=== PATIENT | male | born 1940 | race Caucasian/White ===

== ENCOUNTER 2016-06-17 07:40 | Inpatient (IN) | payer MEDICARE, BC ==
[2016-06-12 16:41] LABS: HEMATOCRIT 43.6 % (40.0-51.0); HEMOGLOBIN 14.7 g/dL (13.6-17.8)
[2016-06-12 16:55] LABS: BUN (BLOOD UREA NITROGEN) 25 MG/DL (6-23); CALCIUM, SERUM 8.9 MG/DL (8.5-10.4); CHLORIDE, SERUM 107 MMOL/L (96-112); CO2 (CARBON DIOXIDE) 26 MMOL/L (24-34); CREATININE 1.22 MG/DL (0.70-1.30); GFR AFRICAN AMERICAN 66 ML/MIN (>=60); GFR NON AFRICAN AMERICAN 57 ML/MIN (>=60); GLUCOSE, SERUM 116 MG/DL (60-99); POTASSIUM, SERUM 4.5 MMOL/L (3.5-5.3); SODIUM, SERUM 142 MMOL/L (135-148)
--- NOTE | ~2016-06-17 | CN ---
Consultation Report [facility] [address] [place]. [address] NAME: AMALIA LIVINGSTON : 40 STATUS : ADM IN [facility]#: [id number] AGE: 76 ADM/REG DATE : 06/17/16 MR#: [id number] REPORT SERV DATE: 06/22/16 DICTATED BY: JOSELUIS DELVALLE DATE: 06/22/16 REPORT STATUS : Draft TRANSCRIBED BY: MODL DATE: 06/22/16 CONSULTATION NOTE. DATE OF CONSULTATION: 06/22/2016 SERVICE: Otolaryngology. 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 During his postoperative period, the patient has had significant difficulty swallowing secondary to pain. Given the extent of the surgery and the length of time, postoperative day #5 now before return to swallowing. My service was consulted for evaluation of the larynx and throat to rule out underlying injury, and discussed with Diana who is the daughter at the bedside. The patient had fully functioning swallowing ability prior to surgery. I talked to the patient himself, he said that he does feel like his swallowing is gradually getting better with each day. I did not recognize any specific voice issues when talking to him. PAST MEDICAL HISTORY: Osteoarthritis, prostate cancer, and osteoporosis. PAST SURGICAL HISTORY: As above. ALLERGIES: FLOMAX AND ROBAXIN. FAMILY HISTORY: Noncontributory. SOCIAL HISTORY: Noncontributory. PHYSICAL EXAMINATION: GENERAL: He is awake, alert, in no acute distress. HEENT: Head is normocephalic and atraumatic. No external ear or nose deformities are present. He had a clean dry bandage over the left side of his neck. Oral cavity and oropharynx were somewhat dry, but there was equal elevation of the palate. PROCEDURE NOTE: After informed consent was obtained, a flexible fiberoptic scope coated in Surgilube was passed through the left naris. The patient had a normal nasopharyngeal mucosa in eustachian tube ostium more posteriorly. The lingual tonsils were symmetric. There was a moderate amount of edema on the left side, but was not in any way obstructing the larynx or swallowing tube. There was very minimal with any pooling of saliva present. The patient adducted and abducted his cords well and there did not appear to be any dysfunction of his vocal cords. He tolerated this procedure well without complications. ASSESSMENT: Dysphagia, this seems most likely be postoperative dysphagia, due to pain and Consultation Report [facility] [id number] [place]. [address] NAME: AMALIA LIVINGSTON : 40 STATUS : ADM IN PAT#: [id number] AGE: 76 ADM/REG DATE : 06/17/16 MR#: [id number] REPORT SERV DATE: 06/22/16 DICTATED BY: JOSELUIS DELVALLE DATE: 06/22/16 REPORT STATUS : Draft TRANSCRIBED BY: MODL DATE: 06/22/16 swelling from surgery. The patient clinically seems to be improving slowly. I anticipate full return of function once the swelling and pain are reduced with the passage of time. I do not see any area which an intervention would be of help at this time. I agree with the tube feeds until patient's swallowing improves. Thank you for this consult. If there are any questions, please do not hesitate to call at any time. My office number is #[phone]. PS/MODL Joseluis Delvalle MD / [id number] CC: Kieran Crump, DO Caleb Weiner M.D.
--- NOTE | ~2016-06-17 | CN ---
Consultation Report [facility] [address] [place]. [address] NAME: AMALIA DELATORRE : 40 STATUS : ADM IN [facility]#: [id number] AGE: 76 ADM/REG DATE : 06/17/16 MR#: [id number] REPORT SERV DATE: 06/23/16 DICTATED BY: JUSTUS SIMEON DATE: 06/21/16 REPORT STATUS : Draft TRANSCRIBED BY: MODL DATE: 06/21/16 CONSULTATION DATE OF CONSULTATION: 06/21/2016 REASON FOR CONSULTATION: Dysphagia, altered mental status, hypertension, and abnormal breathing. HISTORY OF PRESENT ILLNESS: Mr. Delatorre is a 76-year-old male with osteoarthritis and remote prostate cancer, otherwise healthy admitted on 06/17/2018 for intractable neck pain with myelopathic symptoms including ataxia and lower extremity weakness. He underwent an ACDF from C3 to C7 with plating and instrumentation followed by C3 through C7 posterior laminectomy with fusion. The operation took 7 hours, vital signs stable throughout. Estimated blood loss of 300 mL during the operative procedure. Postoperative course, however, was complicated by dysphagia, hypertension, diminished level of consciousness and adventitious breath sounds. We were consulted to evaluate and manage those symptoms. The patient has been somnolent, difficult to arouse. Throughout the day, he had a great deal of pain, required 2 mg of Dilaudid every 3 hours. He awakened briefly and falls back asleep. The patient does awaken for me, acknowledges severe pain, shortness of breath. The pain is in his neck and radiates down his right arm. He has significant cough, unable to expectorate the sensation if there is phlegm present. He has had difficulty swallowing and even his saliva if it is too thick. The patient has had significant weakness, not been out of bed yet. He has had no bowel movements either. He has had nausea but without vomiting. The patient denies any bleeding, denies any cardiovascular, pulmonary health history. No palpitations. No chest pain per se although he does have some inspiratory discomfort. REVIEW OF SYSTEMS: Remainder of review of systems are negative. PAST MEDICAL HISTORY: As mentioned above. The patient denies any prior history of hypertension. MEDICATIONS: At home include Zyrtec, Flexeril, Flonase, Xiidra, multivitamin, Zantac, Aleve, Omegared, Lipoflavonoid. ALLERGIES: NO ALLERGIES. FAMILY HISTORY: Negative for cardiovascular pulmonary disease. SOCIAL HISTORY: The patient has no tobacco, alcohol, or drug history. PHYSICAL EXAMINATION: VITAL SIGNS: On presentation, blood pressure 173/79, pulse 110, respirations 14, afebrile, saturating 91% on room air. GENERAL: On exam, he is asleep but awakens easily. Alert and oriented x3. No apparent Consultation Report [address] [place]. [address] NAME: AMALIA DELATORRE : 40 STATUS : ADM IN PAT#: [id number] AGE: 76 ADM/REG DATE : 06/17/16 MR#: [id number] REPORT SERV DATE: 06/23/16 DICTATED BY: JUSTUS SIMEON DATE: 06/21/16 REPORT STATUS : Draft TRANSCRIBED BY: RASHAUN DATE: 06/21/16 distress. HEENT: Pupils are equal, round, and reactive to light. Extraocular movements are intact. He had fair dry mucous membranes. Normal oropharynx. NECK: Revealed flat jugular veins. He has significant swelling particularly in the left neck with tenderness and diminished range of motion. A [place] drain showed thin serous drainage. CARDIAC EXAM: Tachycardic. Regular rhythm. No murmurs, gallops, or rubs identified. LUNGS: Actually showed excellent excursion with incentive spirometry pulling 2400 mL. ABDOMEN: Soft and nontender. Bowel sounds hypoactive. EXTREMITIES: No cyanosis, clubbing, or edema. He had good pulses but diminished capillary refill. NEUROLOGICAL: He had 5/5 strength bilateral lower extremities. He had pain with use of the upper extremities particularly the right upper extremity. Fire Chief'S Aide was satisfactory, difficult to assess proximal strength due to pain. Deep tendon reflexes were absent in the right upper extremity, they were 2+ and in the left 3+ at the patellar reflexes but toes were downgoing bilaterally. Sensory function was diminished at the right upper extremity, normal throughout the rest. PSYCH: He was appropriate. LABORATORY EVALUATION: Sodium 133, potassium 4.0, chloride 96, bicarb 27, BUN 17, creatinine 0.7, glucose 160, white count 66344, H and 13/37, platelets 265. Chest x-ray shows no apparent disease, left lower lobe atelectasis noted. Telemetry shows sinus tachycardia. ASSESSMENT AND PLAN: 1. Status post C-spine stenosis, 5 level operation done per Dr. Crump. Postoperative complications include dysphagia due to the ACDF. ENT has been consulted. However, it is clear that patient is not swallowing very well, and p.o. was unsafe. He actually had a swallow evaluation by the speech therapist yesterday. Dobbhoff will be placed for medications and for food if this persists. We may go ahead and begin some Jevity at this time. 2. Malignant hypertension. This is exacerbated by pain, hydralazine p.r.n. and to try to get better pain control. A long-acting pain medicine would be recommended in this setting as he is taking very high doses of hydromorphone. We will initiate Duragesic patch and try to reduce the Dilaudid does but increase the frequency to try to have better pain control without further alterations in level of consciousness. 3. Altered mental status likely due to pain medications with good pulmonary expansion. No pulmonary history. Hypercapnia is unlikely. We will go ahead and check that to see if he could benefit from BiPAP therapy. The abnormal chest x-ray noting atelectasis on lung exam probably reflected that earlier today. As he is more awake right now, he has good pulmonary excursion and lung disease is not an issue at this time. However, it should be noted that patient is at high risk for aspiration pneumonitis. We should be cautious with development of fevers or worsening leukocytosis or elevation in procalcitonin. The leukocytosis that he has at present is likely due to Decadron which Consultation Report [address] [place]. [address] NAME: AMALIA DELATORRE : 40 STATUS : ADM IN PAT#: [id number] AGE: 76 ADM/REG DATE : 06/17/16 MR#: [id number] REPORT SERV DATE: 06/23/16 DICTATED BY: JUSTUS SIMEON DATE: 06/21/16 REPORT STATUS : Draft TRANSCRIBED BY: MODCiera DATE: 06/21/16 he has been receiving here in the hospital. We appreciate the opportunity to assist in care of this patient. I will be following with you. SHREYAS/RASHAUN Justus Simeon M.D. / [id number] CC: DO Caleb Leon M.D.
--- NOTE | ~2016-06-17 | OP ---
Record Of Operation [facility] [address] [place]. 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 PROCEDURE: Two-stage procedure: First stage: Anterior cervical diskectomy and fusion, C3-4, C4-5, C5-6, C6-7; placement of Medtronic PEEK interbody spacer, C3-4, C4-5, C5-6, C6-7; anterior cervical plate from Medtronic, C3 through C7; allograft bone matrix; neuromonitoring; and operative microscope. Second stage: C3 through C7 posterior laminectomy and bilateral foraminotomies; C2 through C7 posterolateral fusion bilaterally; C3 through C7 posterior segmental spinal instrumentation using Medtronic lateral mass and pedicle screws; local morcellized autograft, allograft; bone matrix; neuromonitoring; intraoperative O-arm CT scan with computer navigation. SURGEON: Kieran Overton DO. ANESTHESIA: General. ESTIMATED BLOOD LOSS: Total 300 mL. COMPLICATIONS: None. INDICATIONS: The patient is a 76-year-old with intractable neck pain and progressive signs of cervical spondylotic myelopathy. After discussion of risks and benefits, and progressive neurologic decline, the patient elected to proceed with surgery. PROCEDURE IN DETAIL: I identified the patient in the holding area. Consent was obtained. Went to the operating room. Underwent general anesthesia with endotracheal intubation. Prepped and draped in the usual sterile fashion. Operative safety pause was performed, and then we proceeded with surgery. An oblique incision was made over the left side of the neck, taken down through the platysma to the anterior aspect of the spine. Longus colli elevated bilaterally C3 to C7. Madison pin was placed and lateral fluoroscopic image used to verify operative level. Distraction was applied across the C3-C4 level. Operative microscope was brought in. A knife was used to incise the disk. Free disk material removed with pituitary. Anterior osteophytes were removed with Kerrison. Posterior osteophytes and uncinate processes taken down with a misael bur. Foraminotomies performed with a Kerrison. Endplates prepared with curettes, rasp, and a cutting bur. Trial spacers implanted. The Medtronic PEEK interbody spacer with allograft bone matrix placed at C3-C4, this was repeated again at C4-5, C5-6, and C6-C7. Irrigation performed. Hemostasis achieved. Record Of Operation [facility] [address] [place]. [address] NAME: AMALIA LIVINGSTON : 40 STATUS : ADM IN PAT#: [id number] AGE: 76 ADM/REG DATE : 06/17/16 MR#: [id number] REPORT SERV DATE: 06/18/16 DICTATED BY: KIERAN OVERTON DATE: 06/17/16 REPORT STATUS : Draft TRANSCRIBED BY: RASHAUN DATE: 06/17/16 Madison pins were removed. Anterior cervical plate from Medtronic placed C3 through C7. Screws were placed, final tightened. Locking mechanisms were engaged. Final AP and lateral images were obtained. Subplatysmal drain was placed. Layered closure performed. Sterile dressings applied. The patient was then turned to the prone position for second stage of the procedure. Second stage: The patient was prepped and draped in usual sterile fashion. Operative safety pause was performed. A midline longitudinal incision was made at C2 down to C7 taken down to the fascial layer. Paraspinous muscle subperiosteally elevated. Self-retaining retractors were placed. O-arm registration frame placed on the spinous process. O-arm was brought in for an intraoperative O-arm CT scan. Computer registration materials were verified and then lateral mass and pedicle screws from Medtronic were placed from C3 down to C7. There was already an auto fusion at the C2-C3 level. There was not good sufficient bone stock at C2 due to aberrant course of the vertebral artery, so screws were not placed at that level. O-arm was brought back in to verify good placement of instrumentation. A high-speed bur was used to create a trough in the lamina C3 through C7. Final cut were made with a misael bur. Kerrison removed underlying ligamentum flavum. The lamina was removed en bloc and used for local morcellized autograft. Kerrison was used to perform foraminotomies at C3 through C7. Spinal cord and nerves were free of compression. Rods were cut and contoured to appropriate shape and length, placed over the screws C3 through C7. Set screws placed and final tightened. A high-speed decorticating catalina was used to decorticate the remaining bony surfaces C2 down to C7. Irrigation performed. Hemostasis achieved. Local morcellized autograft and allograft bone matrix packed over the decorticated surfaces at C2 to C7 bilaterally. Subfascial drain placed. A gram of vancomycin powder sprinkled over the surgical wound. Layered closure performed. Sterile dressings applied. The patient awoke and extubated, taken to recovery room in stable condition. OPERATIVE FINDINGS: Severe stenosis with spinal cord and nerve root compression. No sustained neuromonitoring alerts. RAZ/RASHAUN Kieran Overton DO / [id number] CC: Kieran Overton DO
--- NOTE | ~2016-06-17 | PREOPHP ---
PreOp History and Physical [facility] [id number] [place]. [address] NAME: AMALIA LIVINGSTON : 40 STATUS : ADM IN [facility]#: [id number] AGE: 76 ADM/REG DATE : 06/17/16 MR#: [id number] REPORT SERV DATE: 06/17/16 DICTATED BY: KIERAN CRUMP DATE: 06/17/16 REPORT STATUS : Draft TRANSCRIBED BY: RASHAUN DATE: 06/17/16 CHIEF COMPLAINT: Neck pain. HISTORY OF PRESENT ILLNESS: The patient is a 76-year-old gentleman with intractable neck pain. He also has progressive signs of myelopathy with worsening balance and dropping objects and after discussion of risks and benefits, he elected to proceed with surgical intervention. REVIEW OF SYSTEMS: He denies chest pain, shortness of breath, and bowel or bladder changes. ALLERGIES: DENIED. HOME MEDICATIONS: Include Advil, Aleve, Flexeril, fish oil, methocarbamol, multivitamin, tramadol. FAMILY HISTORY: Noncontributory. PAST MEDICAL HISTORY: Osteoarthritis, prostate cancer, osteoporosis. PHYSICAL EXAMINATION: VITAL SIGNS: Height 5 feet 10 inches, weight 158, BMI 22.7. GENERAL: The patient is healthy appearing, in no acute distress. PSYCH: Alert and oriented x3. Normal mood and affect. Gait somewhat unsteady. VASCULAR: No extremity swelling. SPINE: Decreased cervical motion. NEUROLOGIC: Positive Rui sign on the left. Motor strength is 4/5 for the left triceps. All other motor strength in the bilateral upper extremities is 5/5. HEART: Regular rate and rhythm. LUNGS: Clear to auscultation. ABDOMEN: Soft, nontender, nondistended with good bowel sounds. BREASTS: Deferred. RECTAL: Deferred. IMAGING: I have reviewed the MRI scan of the cervical spine. The patient does have disk disease and stenosis, C2 down through C7, with spinal cord and nerve root compression. ASSESSMENT: Cervical disk disease and stenosis, progressive signs of cervical spondylotic myelopathy, failed conservative treatment, progressive neurologic decline. PLAN: The patient presents for surgical intervention. Consent was obtained. All questions are answered. He is ready to proceed with surgery. RAZ/RASHAUN PreOp History and Physical [address] [place]. [place] [address] NAME: AMALIA LIVINGSTON : 40 STATUS : ADM IN [facility]#: [id number] AGE: 76 ADM/REG DATE : 06/17/16 MR#: [id number] REPORT SERV DATE: 06/17/16 DICTATED BY: KIERAN CRUMP DATE: 06/17/16 REPORT STATUS : Draft TRANSCRIBED BY: MODL DATE: 06/17/16 Kieran Crump DO / [id number] CC: DO Caleb Leon M.D.
--- NOTE | ~2016-06-17 | DS ---
Discharge Summary [id number] [place]. [address] NAME: AMALIA LIVINGSTON : 40 STATUS : DIS IN PAT#: [id number] AGE: 76 ADM/REG DATE : 06/17/16 MR#: [id number] REPORT SERV DATE: 07/08/16 DICTATED BY: KIERAN CRUMP DATE: 07/07/16 REPORT STATUS : Draft TRANSCRIBED BY: RASHAUN DATE: 07/07/16 Data Collection from hospitalization DISCHARGE DIAGNOSES: 1. 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 2. Osteoarthritis. 3. Osteoporosis. 4. History of prostate cancer. CONSULTATIONS: 1. Alen Ojeda M.D. 2. Kenneth Louis MD. PROCEDURES PERFORMED: Stage 2 procedure. First stage: Anterior cervical diskectomy and fusion C3-4, C4-5, C5-6, C6-7; placement of Medtronic PEEK interbody spacer C3-4, C4-5, C5-6, C6-7; anterior cervical plate from Medtronic C3 through C7; allograft bone matrix, neuromonitoring, and operative microscope. Second stage: C3 through C7 posterior laminectomy and bilateral foraminotomies, C2 through C7 posterolateral fusion bilaterally, C3 through C7 posterior segmental spinal instrumentation using Medtronic lateral mass and pedicle screws; local morcellized autograft, allograft bone matrix, neuromonitoring, intraoperative O-arm CT scan with computer navigation on 06/17/2016. Modified barium swallow study on 06/24/2016. PATHOLOGY: Bone and soft tissue, cervical spine - nonspecific degenerative changes. MEDICATIONS: Lotensin 20 mg daily, Duragesic 50 mcg topically every 72 hours, MiraLAX one packet daily, Proventil 3 mL via inhaler every four hours while awake, Tylenol 650 mg every four hours as needed orally or rectally, Mylanta 30 mL as needed, Dulcolax 10 mg per rectum as needed, Dulcolax 15 mg as needed, Benadryl 25 mg every six hours as needed, Zantac 150 mg as needed, Flonase nasal spray one spray nasally twice a day as needed, Zyrtec 10 mg daily as needed, milk of magnesia 30 mL twice a day as needed, Percocet 5/325 one to two tablets every four hours as needed, Phenergan 25 mg per rectum every four hours as needed, Mouth Kote dry mouth spray one spray as needed, multivitamins one tablet daily, Xiidra one drop every 12 hours, Colace 100 mg twice a day as needed - hold for loose stools, and Phenergan 12.5 mg every four to six hours as needed. CONDITION AT DISCHARGE: Stable. DISPOSITION: The patient was discharged to [facility] on a mechanical soft, chopped meat with gravy diet with activities as instructed. HOSPITAL COURSE: This is a 76-year-old man who has intractable neck pain. He also has progressive signs of myelopathy with worsening balance and dropping objects, and after Discharge Summary [address] [place]. [address] NAME: AMALIA LIVINGSTON : 40 STATUS : DIS IN [facility]#: [id number] AGE: 76 ADM/REG DATE : 06/17/16 MR#: [id number] REPORT SERV DATE: 07/08/16 DICTATED BY: KIERAN CRUMP DATE: 07/07/16 REPORT STATUS : Draft TRANSCRIBED BY: RASHAUN DATE: 07/07/16 discussion of risks and benefits, he elected to proceed with surgical intervention. He was admitted to the hospital at this time for further evaluation and treatment. Upon admission, he was taken to the operating room where he underwent the above-mentioned procedure. He tolerated this well, and there were no complications. Upon admission, he was taken to the operating room where he underwent the above-mentioned procedure. He tolerated this well, and there were no complications. On 06/19/2016, he was doing well. He did complain of some various muscle spasms that were transient all over. We encouraged him to mobilize with Physical Therapy. He was given 1 g of calcium gluconate. On 06/20/2016, Speech/Language Pathology evaluated the patient. A bedside swallow study was performed. Aspiration precautions were in place. He was evaluated by Physical Therapy. He was up sitting in a chair. He did complain of some intermittent spasms. On 06/21/2016, we encouraged him to mobilize with Physical Therapy. Aerosol treatments were performed. Apresoline was being given as needed. Dobhoff tube was going to be used for medications. The patient was seen by Dr. Alen Ojeda regarding dysphagia, altered mental status, hypertension, and abnormal breathing. His postoperative complications included dysphagia due to ACDS. The patient has malignant hypertension, this was exacerbated by pain. Hydralazine was being given as needed. A long-acting pain medication was recommended in this setting as he was taking very high doses of hydromorphone. We were going to initiate Duragesic patch and try to reduce Dilaudid doses, but increase the frequency to try to have better pain control without further alterations in level of consciousness. It was felt that he may benefit from BiPAP therapy. Abnormal chest x-ray revealed atelectasis. On 06/22/2016, he seemed to be more alert. He complained of some left hand and forearm numbness. We encouraged him to mobilize with Physical Therapy as tolerated. Medications were being given via the Dobhoff tube. He was seen by Dr. Kenneth Louis. The patient had fully functioning swallowing ability prior to surgery. He said he felt like his swallowing was gradually getting better with each day. There were no specific voice issues. He performed a flexible fiberoptic scope. The patient had normal nasopharyngeal mucosa in the eustachian tube ostium more posteriorly. The lingual tonsils were symmetric. There was a moderate amount of edema on the left side, but it was not in any way obstructing the larynx or swallowing tube. There was very minimal with any pooling of saliva present. The patient abducted and adducted his cords well and there did not appear to be any dysfunction of his vocal cords. He tolerated that without any complications. The dysphagia seemed to be most likely postoperative dysphagia due to pain and swelling from surgery. He appeared to be clinically improving slowly. We anticipated full return of function once the swelling and pain were reduced with the passage of time. He did not see any areas where intervention would be of help at this time. He agreed with tube feedings until swallowing improved. The next day, he seemed to be feeling better. A modified barium swallow study was requested. On 06/24/2016, modified barium swallow study was performed. He was up sitting in a bedside chair. He was in no acute distress. He did have some nausea when he was up with Physical Therapy. He denied any chest pain or shortness of breath. He did have a bowel movement. His altered mental status resolved. Aspiration precautions remained in place. He had no aspiration or penetration seen. Next day, he did complain of some neck pain. He denied any difficulty swallowing. He denied chest pain or shortness of breath. He did have a cough with some clear phlegm. On Discharge Summary [address] [place] [address] NAME: AMALIA LIVINGSTON : 40 STATUS : DIS IN PAT#: [id number] AGE: 76 ADM/REG DATE : 06/17/16 MR#: [id number] REPORT SERV DATE: 07/08/16 DICTATED BY: KIERAN CRUMP DATE: 07/07/16 REPORT STATUS : Draft TRANSCRIBED BY: MODCiera DATE: 07/07/16 06/26/2016, he did have an episode of vomiting after his morning medications. He refused Reglan. He denied chest pain, shortness of breath, or abdominal pain. He was in a sinus rhythm. Discharge instructions were given. Due to his improved and stable condition, he was discharged to [facility] with the above-stated instructions. Information collected by: Edwina Soto I submit the above information as my discharge summary. JOSE MANUEL/RASHAUN Kieran Crump DO / [id number] CC: DO Caleb Leon M.D. [facility] Kenneth Louis MD
[~2016-06-17 07:40] MED LIST: ACET500CAP PO; ALEVE PM PO; AMOXIL500 MG PO; AVODART PO; EYE OP; FISH-EPA1000 MG PO; FLEX PO; FLONASE NAS; LIPO FLAVINOID PO; MULTIVITAMI1 PO; OMEGA RED PO; OXAPROZIN600 MG PO; OXYCOD PO; REFRESH OPH SO0.3 ML OPH; REMERON30 MG PO; RESTASIS OPH; XIIDRA1 EACH OPH; ZANTAC150 MG PO; ZYRTEC ALLGY10 MG PO; [UNRECOGNIZED DRUG - OTHER] T
[2016-06-18 03:39] LABS: POTASSIUM, SERUM 4.4 MMOL/L (3.5-5.3)
[2016-06-20 07:17] LABS: BASOPHILS 0.1 %; BASOPHILS ABSOLUTE 0.01 10/3/uL (0.0-0.16); EOSINOPHILS 0.6 %; EOSINOPHILS ABSOLUTE 0.08 10/3/uL (0.0-0.53); HEMOGLOBIN 11.9 g/dL (13.6-17.8); IMMATURE GRANULOCYTES 0.2 %; IMMATURE GRANULOCYTES ABSOLUTE 0.03 10/3/uL (0.0-0.11); LYMPHOCYTES 8.3 %; LYMPHOCYTES ABSOLUTE 1.13 10/3/uL (0.67-4.30); MEAN CORPUS HGB CONC 34.3 g/dL (32.0-36.0); MEAN CORPUSCULAR HEMOGLOB 29.9 pg (26.0-34.0); MEAN CORPUSCULAR VOLUME 87.2 fL (80-100); MEAN PLATELET VOLUME 11.1 fL (9.2-13.0); MONOCYTES 7.5 %; MONOCYTES ABSOLUTE 1.03 10/3/uL (0.21-1.20); NEUTROPHILS 83.3 %; NEUTROPHILS ABSOLUTE 11.38 10/3/uL (2.02-8.40); PLATELET COUNT 221 10/3/uL (150-400); RBC DISTRIBUTION WIDTH 13.1 % (12.0-16.0); RED CELL COUNT 3.98 10/6/uL (4.7-6.1); WHITE BLOOD CELLS 13.7 10/3/uL (4.5-10.5)
[2016-06-20 07:19] LABS: BUN (BLOOD UREA NITROGEN) 14 MG/DL (6-23); CHLORIDE, SERUM 99 MMOL/L (96-112); CO2 (CARBON DIOXIDE) 24 MMOL/L (24-34); GLUCOSE, SERUM 123 MG/DL (60-99); POTASSIUM, SERUM 3.9 MMOL/L (3.5-5.3); SODIUM, SERUM 132 MMOL/L (135-148)
[2016-06-20 07:20] LABS: CALCIUM, SERUM 7.8 MG/DL (8.5-10.4); GFR AFRICAN AMERICAN 106 ML/MIN (>=60); GFR NON AFRICAN AMERICAN 92 ML/MIN (>=60)
[2016-06-20 07:24] LABS: HEMATOCRIT 34.7 % (40.0-51.0); MANUAL DIFF NO %
[2016-06-20 07:26] LABS: INTERNATIONAL NORMAL RATI 1.1 UNITS (-); PROTIME (NOT ORD) 14.4 SEC (12.0-14.5)
[2016-06-21 05:40] LABS: BASOPHILS 0 %; EOSINOPHILS 0.1 %; EOSINOPHILS ABSOLUTE 0.01 10/3/uL (0.0-0.53); HEMATOCRIT 36.5 % (40.0-51.0); HEMOGLOBIN 12.8 g/dL (13.6-17.8); IMMATURE GRANULOCYTES 0.2 %; IMMATURE GRANULOCYTES ABSOLUTE 0.03 10/3/uL (0.0-0.11); LYMPHOCYTES 5.7 %; LYMPHOCYTES ABSOLUTE 0.71 10/3/uL (0.67-4.30); MEAN CORPUS HGB CONC 35.1 g/dL (32.0-36.0); MEAN CORPUSCULAR HEMOGLOB 30.4 pg (26.0-34.0); MEAN CORPUSCULAR VOLUME 86.7 fL (80-100); MEAN PLATELET VOLUME 11.2 fL (9.2-13.0); MONOCYTES 5.9 %; MONOCYTES ABSOLUTE 0.74 10/3/uL (0.21-1.20); NEUTROPHILS 88.1 %; NEUTROPHILS ABSOLUTE 11.06 10/3/uL (2.02-8.40); PLATELET COUNT 265 10/3/uL (150-400); RED CELL COUNT 4.21 10/6/uL (4.7-6.1); WHITE BLOOD CELLS 12.6 10/3/uL (4.5-10.5)
[2016-06-21 05:41] LABS: MANUAL DIFF NO %
[2016-06-21 05:53] LABS: BUN (BLOOD UREA NITROGEN) 17 MG/DL (6-23); CALCIUM, SERUM 8.2 MG/DL (8.5-10.4); CHLORIDE, SERUM 96 MMOL/L (96-112); CO2 (CARBON DIOXIDE) 27 MMOL/L (24-34); CREATININE 0.71 MG/DL (0.70-1.30); GFR AFRICAN AMERICAN 106 ML/MIN (>=60); GFR NON AFRICAN AMERICAN 91 ML/MIN (>=60); GLUCOSE, SERUM 160 MG/DL (60-99); SODIUM, SERUM 133 MMOL/L (135-148)
[2016-06-22 04:58] LABS: ALLENS TEST Pos; BE (BASE EXCESS) 4.5 MEQ/L (0 +/- 2.5); CARBOXYHEMOGLOBIN 0.7 % (0-3); HCO3 (ACTUAL BICARBONATE) 28.2 MEQ/L (23-27); HEMOBLOGIN CONTENT 12.7 G/DL (14-18); INSTRUMENT SERIAL # 8083; METHEMOGLOBIN 0.3 % (0-3); O2 CONTENT 16.6 VOL% (18-24); OPERATOR ID 33214; PCO2 (CO2 TENSION) 39 MMHG (35-45); PO2 (O2 TENSION) 66 MMHG (79-93); SAMPLE Arterial; pH 7.48 (7.37-7.43)
[2016-06-22 05:43] LABS: BASOPHILS 0.1 %; BASOPHILS ABSOLUTE 0.01 10/3/uL (0.0-0.16); EOSINOPHILS 0.3 %; EOSINOPHILS ABSOLUTE 0.04 10/3/uL (0.0-0.53); HEMATOCRIT 35.2 % (40.0-51.0); HEMOGLOBIN 12.3 g/dL (13.6-17.8); IMMATURE GRANULOCYTES 0.3 %; IMMATURE GRANULOCYTES ABSOLUTE 0.04 10/3/uL (0.0-0.11); LYMPHOCYTES 10.3 %; LYMPHOCYTES ABSOLUTE 1.43 10/3/uL (0.67-4.30); MEAN CORPUS HGB CONC 34.9 g/dL (32.0-36.0); MEAN CORPUSCULAR HEMOGLOB 30.2 pg (26.0-34.0); MEAN CORPUSCULAR VOLUME 86.5 fL (80-100); MEAN PLATELET VOLUME 10.9 fL (9.2-13.0); MONOCYTES 10.4 %; MONOCYTES ABSOLUTE 1.45 10/3/uL (0.21-1.20); NEUTROPHILS 78.6 %; NEUTROPHILS ABSOLUTE 10.96 10/3/uL (2.02-8.40); PLATELET COUNT 319 10/3/uL (150-400); RBC DISTRIBUTION WIDTH 13.1 % (12.0-16.0); RED CELL COUNT 4.07 10/6/uL (4.7-6.1); WHITE BLOOD CELLS 13.9 10/3/uL (4.5-10.5)
[2016-06-22 05:50] LABS: MANUAL DIFF NO %
[2016-06-22 06:09] LABS: BUN (BLOOD UREA NITROGEN) 20 MG/DL (6-23); CALCIUM, SERUM 8.3 MG/DL (8.5-10.4); CHLORIDE, SERUM 100 MMOL/L (96-112); CO2 (CARBON DIOXIDE) 26 MMOL/L (24-34); CREATININE 0.81 MG/DL (0.70-1.30); GFR AFRICAN AMERICAN 100 ML/MIN (>=60); GFR NON AFRICAN AMERICAN 86 ML/MIN (>=60); GLUCOSE, SERUM 154 MG/DL (60-99); POTASSIUM, SERUM 3.6 MMOL/L (3.5-5.3); SODIUM, SERUM 136 MMOL/L (135-148)
[2016-06-22 06:25] LABS: PROCALCITONIN 0.21 ng/mL (<0.5)
[2016-06-25 10:32] LABS: BASOPHILS 0.2 %; BASOPHILS ABSOLUTE 0.03 10/3/uL (0.0-0.16); EOSINOPHILS ABSOLUTE 0.49 10/3/uL (0.0-0.53); IMMATURE GRANULOCYTES 0.9 %; IMMATURE GRANULOCYTES ABSOLUTE 0.14 10/3/uL (0.0-0.11); LYMPHOCYTES ABSOLUTE 2.41 10/3/uL (0.67-4.30); MEAN CORPUS HGB CONC 33.9 g/dL (32.0-36.0); MEAN CORPUSCULAR HEMOGLOB 30.2 pg (26.0-34.0); MONOCYTES 8.4 %; MONOCYTES ABSOLUTE 1.35 10/3/uL (0.21-1.20); NEUTROPHILS 72.5 %; NEUTROPHILS ABSOLUTE 11.68 10/3/uL (2.02-8.40); PLATELET COUNT 399 10/3/uL (150-400); RBC DISTRIBUTION WIDTH 13.3 % (12.0-16.0); RED CELL COUNT 4.63 10/6/uL (4.7-6.1); WHITE BLOOD CELLS 16.1 10/3/uL (4.5-10.5)
[2016-06-25 10:36] LABS: HEMATOCRIT 41.3 % (40.0-51.0); MANUAL DIFF NO %; MEAN CORPUSCULAR VOLUME 89.2 fL (80-100)
[2016-06-25 10:43] LABS: CALCIUM, SERUM 8.4 MG/DL (8.5-10.4); CHLORIDE, SERUM 92 MMOL/L (96-112); CREATININE 0.94 MG/DL (0.70-1.30); GFR AFRICAN AMERICAN 91 ML/MIN (>=60); GFR NON AFRICAN AMERICAN 78 ML/MIN (>=60); GLUCOSE, SERUM 153 MG/DL (60-99); POTASSIUM, SERUM 3.8 MMOL/L (3.5-5.3); SODIUM, SERUM 133 MMOL/L (135-148)
[2016-06-25 10:44] LABS: BUN (BLOOD UREA NITROGEN) 35 MG/DL (6-23); CO2 (CARBON DIOXIDE) 33 MMOL/L (24-34)
== END 2016-06-26 15:41 | DRG 453 ==
LOC: SDC/OF 07:40 → MIC 20:10 → 1SO 06-19 00:02
PROVIDERS: Nurse Practitioner; Orthopaedic Surgery
DX: M47.12 Other spondylosis with myelopathy, cervical region (principal); G93.40 Encephalopathy, unspecified; G95.9 Disease of spinal cord, unspecified; E83.51 Hypocalcemia; R13.10 Dysphagia, unspecified; J98.11 Atelectasis; M48.02 Spinal stenosis, cervical region; I10 Essential (primary) hypertension; T40.605A Adverse effect of unspecified narcotics, initial encounter; K59.03 Drug induced constipation; D72.829 Elevated white blood cell count, unspecified; K21.9 Gastro-esophageal reflux disease without esophagitis; Z88.8 Allergy status to other drugs, medicaments and biological substances; Z85.46 Personal history of malignant neoplasm of prostate; Z79.899 Other long term (current) drug therapy
CPT/HCPCS: 36600; 71010; 74000; 74230; 80048; 80051; 82805; 82962; 83735; 84145; 84443; 85014; 85018; 85025; 85610; 87641; 88304; 88311; 92610-GN; 92611-GN; 93005; 94640; 97110-GO; 97110-GP; 97116-GP; 97161-GP; 97166-GO; 97530-GP; A9270-GY; C1713; C1776; G8978-CK-GP; G8979-CH-GP; G8987-CL-GO; G8988-CK-GO; G8996-CJ-GN; G8996-CN-GN; G8997-CJ-GN; G8997-CN-GN; G8998-CJ-GN; G8998-CN-GN; J0360; J0610; J0690; J1170; J1644; J2250; J2270; J2370; J2405; J2550; J2710; J3010; J3370